=== PATIENT | female | born 1985 | race Caucasian/White ===

== ENCOUNTER 2023-12-16 07:08 | Emergency (ER) | payer OTHER, SELFPAY ==
[2023-12-16 07:14] VITALS: BP 91/74; PULSE 84; TEMP 36.6; O2SAT 100
--- NOTE | 2023-12-16 07:35 | CT_ITS ---
The [address] [address] Patient Name: JIGNESH DIEHL MRN: [id number] date: 1985 Sex: F Assigned Patient Location: ED.MAIN Current Patient Location: ER Accession/Order Number: [id number] Exam Date: 12/16/2023 07:45 Report Date: 12/16/2023 08:17 At the request of: VIKRAM LUGO Procedure: CT head/brain wo con EXAMINATION: CT head/brain wo con, 12/16/2023 7:45 AM EDT HISTORY: migraine COMPARISON: None. TECHNIQUE: CT scan of the head was performed without IV contrast. CT dose reduction technique was used, including Automated Exposure Control. FINDINGS: BRAIN: No edema, hemorrhage, mass, acute infarction, or inappropriate atrophy. CSF SPACES: No hydrocephalus, subarachnoid hemorrhage, or mass. Appropriate for age. SKULL: No fracture, mass, or other significant visible lesion. SINUSES: No significant mucosal thickening or fluid on the limited views. ORBITS: No appreciable abnormality on the limited views. OTHER: Negative CT/CT head/brain wo con IMPRESSION: No acute intracranial abnormality Electronically authenticated by: IRVING ADAMS Date: 12/16/2023 08:17
[2023-12-16 07:50] LABS: Basophils Percent Auto 0.2 % (0.2-2.0); Eosinophils Absolute Auto 0.1 10^3/uL (0.0-0.7); Hematocrit 43.1 % (36.0-48.0); Hemoglobin 14.2 g/dL (12.0-16.0); Immature Granulocytes Abs Auto 0.03 10^3/uL (0.00-0.03); Immature Granulocytes Pct Auto 0.3 % (0.0-0.5); Lymphocytes Absolute Auto 2.4 10^3/uL (1.2-3.8); Lymphocytes Percent Auto 27.9 % (20.5-60.0); Mean Corpuscular HGB Conc 32.9 g/dL (29.9-35.2); Mean Corpuscular Hemoglobin 29.4 pg (26.7-34.0); Mean Corpuscular Volume 89.2 fL (81.0-99.0); Mean Platelet Volume 10.2 fL (9.5-13.5); Monocytes Absolute Auto 0.5 10^3/uL (0.3-0.8); Monocytes Percent Auto 5.8 % (1.7-12.0); Neutrophils Absolute Auto 5.6 10^3/uL (1.4-6.5); Neutrophils Percent Auto 64.8 % (43.0-75.0); Platelet Count 229 10^3/uL (150-450); Red Blood Count 4.83 10^6/uL (4.20-5.40); Red Cell Distribution Width 12.7 % (11.0-15.0); White Blood Count 8.6 10^3/uL (4.0-11.0)
--- NOTE | 2023-12-16 07:50 | ED_ITS ---
HPI HPI - General Adult General Chief complaint: Headache Stated complaint: HEADACHE Time Seen by Provider: 12/16/23 07:23 Source: patient Mode of arrival: walk-in Limitations: no limitations History of Present Illness HPI narrative: Patient presents to ED complaining of migraine headache. She has a longstanding history of migraines but she states this 1 is very different because it lasted a lot longer than normal. She said it started last Thursday and has been on and off since. She did go to the chiropractor who told her her neck was tight and she was adjusted and had some relief from that but then the pain came back by the next day. She did take her rescue medications at home without relief. She has been eating and drinking but not as much is normal. Her blood pressure is a li ttle bit low here today. No neurological deficits but she is sensitive to light and sound. She said most of the time her migraines on the right side of her face and sometimes she gets some numbness and tingling with. Today the migraine seems to be more around the back of her head. No trauma. She did request a CAT scan today because she states her symptoms are different than her normal Alert and oriented x 3 in no acute distress Related Data Allergies Allergy/AdvReac Type Severity Reaction Status Date / Time amitriptyline Allergy Mild tremor Verified 12/16/23 07:14 Opioid HPI Opioid Management Most Recent Opioid Data: Last Pain Scale 7 12/16/23 07:51 Last MAR Pain Assessment 12/16/23 07:51 Review of Systems ROS Status of ROS 10 or more systems reviewed and unremark able except as noted in history and below Exam Narrative Exam Narrative: Time Seen: [] Vital Signs: [Per nurse's notes.] General: [Alert] Skin: [Warm, dry, no rash.] Head: [Normocephalic, atraumatic.] Neck: [Supple, trachea midline.] Eye: [Pupils are equal, round and reactive to light, extraocular movements are intact, normal conjunctiva.] Ears, nose, mouth and throat: oral mucosa moist. Cardiovascular: [Regular rate and rhythm, no murmur.] Respiratory: [Lungs are clear to auscultation, respirations are non-labored, breath sounds are equal.] Chest wall: [No tenderness, no deformity.] Gastrointestinal: [Soft, nontender, non distended, normal bowel sounds.] MSK: 5 out of 5 muscle strength x 4 extremities no calf pain or edema Lymphatics: [No lymphadenopathy.] Psychiatric: [Cooperative, appropriate mood & affect.] Neurological: [Alert and oriented to person, place, time, and situation, no focal neurological deficit observed.] Constitutional Vital Signs, click to edit/add: Last Vital Signs Temp 97.9 F 12/16/23 07:14 Pulse 84 12/16/23 07:14 Resp 16 12/16/23 07:14 BP 91/74 12/16/23 07:14 Pulse Ox 100 12/16/23 07:14 Course Vital Signs Vital signs: Vital Signs Temperature 97.9 F 12/16/23 07:14 Pulse Rate 84 12/16/23 07:14 Respiratory Rate 16 12/16/23 07:14 Blood Pressure 91/74 12/16/23 07:14 Pulse Oximetry 100 12/16/23 07:14 Temperature 97.9 F 12/16/23 07:14 Pulse Rate 84 12/16/23 07:14 Respiratory Rate 16 12/16/23 07:14 Blood Pressure 91/74 12/16/23 07:14 Pulse Oximetry 100 12/16/23 07:14 Medical Decision Making MDM Narrative Medical decision making narrative: Patient's labs and imaging are nonacute. She is feeling much better after IV medication and fluids. Patient is comfortable care plan for home. Follow-up with neurology. Discussed possible Botox treatments for her migraines, please discuss this with your neurologist as I think it may help with as I think a lot of this is tension related. Return to ED if worsening symptoms. Differential Diagnosis Differential Diagnosis: Migraine, atypical migraine, intracranial hemorrhage, Electrolyte abnormali Medical Records Medical records reviewed: Yes I reviewed the patient's medical records Lab Data Lab results reviewed: Yes I reviewed the patient's lab results Labs: Lab Results 12/16/23 Range/Units 07:24 WBC 8.6 (4.0-11.0) 10^3/uL RBC 4.83 (4.20-5.40) 10^6/uL Hgb 14.2 (12.0-16.0) g/dL Hct 43.1 (36.0-48.0) % MCV 89.2 (81.0-99.0) fL MCH 29.4 (26.7-34.0) pg MCHC 32.9 (29.9-35.2) g/dL RDW 12.7 (11.0-15.0) % Plt Count 229 (150-450) 10^3/uL MPV 10.2 (9.5-13.5) fL Neut % (Auto) 64.8 (43.0-75.0) % Lymph % (Auto) 27.9 (20.5-60.0) % [place] % (Auto) 5.8 (1.7-12.0) % Eos % (Auto) 1.0 (0.9-7.0) % Baso % (Auto) 0.2 (0.2-2.0) % Neut # (Auto) 5.6 (1.4-6.5) 10^3/uL Lymph # (Auto) 2.4 (1.2-3.8) 10^3/uL [place] # (Auto) 0.5 (0.3-0.8) 10^3/uL Eos # (Auto) 0.1 (0.0-0.7) 10^3/uL Baso # (Auto) 0.0 (0.0-0.1) 10^3/uL Abs Immat Gran (auto) 0.03 (0.00-0.03) 10^3/uL Imm/Tot Granulo (auto) 0.3 (0.0-0.5) % Sodium 145 (136-145) mmol/L Potassium 3.8 (3.5-5.1) mmol/L Chloride 108 H (98-107) mmol/L Carbon Dioxide 28.7 (21.0-32.0) mmol/L Anion Gap 12.1 BUN 11.0 (7.0-18.0) mg/dL Creatinine 0.98 (0.55-1.02) mg/dL Est GFR ( Amer) >60 (>=60) Est GFR (Non-Af Amer) >60 (>=60) BUN/Creatinine Ratio 11.2 Glucose 91 (74-106) mg/dL Calcium 9.4 (8.5-10.1) mg/dL Magnesium 2.5 H (1.8-2.4) mg/dL Total Bilirubin 0.8 (0.2-1.0) mg/dL AST 16 (15-37) U/L ALT 21 (14-59) U/L Alkaline Phosphatase 34 L (46-116) U/L Total Protein 7.2 (6.4-8.2) g/dL Albumin 3.6 (3.4-5.0) g/dL Globulin 3.6 g/dL Albumin/Globulin Ratio 1.0 Urine Color Lt. yellow (YELLOW) Urine Clarity Clear (CLEAR) Urine pH 6.0 (5.0-9.0) Ur Specific [place] 1.020 (1.005-1.025) Urine Protein Negative (NEG/TRACE) mg/dL Urine Glucose (UA) Negative (NEGATIVE) mg/dL Urine Ketones Negative (NEGATIVE) mg/dL Urine Occult Blood Trace-i (NEGATIVE) Urine Nitrite Negative (NEGATIVE) Urine Bilirubin Negative (NEGATIVE) Urine Urobilinogen 0.2 (0.2-1.0) EU/dL Ur Leukocyte Esterase Negative (NEGATIVE) Urine RBC 2-5 A (0-2) #/HPF Urine WBC 0-2 A (NONE SEEN) #/HPF Ur Squamous Epith Cells Few A (NONE/RARE) #/LPF Urine Crystals None seen (None Seen) #/HPF Urine Bacteria None seen (NONE SEEN) #/HPF Urine Casts None seen (NONE SEEN) #/LPF Urine Mucus None seen (NONE SEEN) Ur Culture Indicated? No Urine HCG, Qual Negative (NEGATIVE) Imaging Data CT scan - head: Radiologist's impression: ITS Impressions Head CT 12/16/23 07:35 IMPRESSION: No acute intracranial abnormality Electronically authenticated by: IRVING ADAMS Date: 12/16/2023 08:17 Discharge Plan Discharge Stand Alone Forms: Portal Instructions Chief Complaint: Headache Clinical Impression: Headache Patient Disposition: Home, Self-Care Time of Disposition Decision: 09:09 Condition: Good Mode of Transportation: Private Vehicle Print Language: Danish Instructions: Acute Headache (ED) Referrals: COLLINS ROACH [Primary Care Provider] - 1 week
[2023-12-16 07:51] LABS: Bilirubin Urine NEGATIVE (NEGATIVE); Blood Urine TRACE-I (NEGATIVE); Clarity Urine CLEAR (CLEAR); Color Urine LT. YELLOW (YELLOW); Glucose Urine UA NEGATIVE (NEGATIVE); Ketones Urine NEGATIVE (NEGATIVE); Leukocyte Esterase Urine NEGATIVE (NEGATIVE); Nitrite Urine NEGATIVE (NEGATIVE); Protein Urine NEGATIVE (NEG/TRACE); Urine Microscopic Indicated YES; Urobilinogen Urine 0.2 EU/dL (0.2-1.0)
[2023-12-16] MEDS: KETOROLAC TROMETHAMINE 30 MG/ML VIAL IVP (07:51)
[2023-12-16] MEDS: METOCLOPRAMIDE HCL 10 MG/2 ML VIAL IVP (07:51)
[2023-12-16] MEDS: 0.9 % SODIUM CHLORIDE 1,000 ML 1000 ML IV (07:51)
[2023-12-16] MEDS: DIPHENHYDRAMINE HCL 50 MG/ML VIAL 25 MG IV (07:52)
[2023-12-16 08:05] LABS: Alanine Aminotransferase 21 U/L (14-59); Albumin Level 3.6 g/dL (3.4-5.0); Alkaline Phosphatase 34 U/L (46-116); Anion Gap 12.1; Aspartate Amino Transferase 16 U/L (15-37); BUN Creatinine Ratio 11.2; Bacteria Urine NONE SEEN #/HPF (NONE SEEN); Bilirubin Total 0.8 mg/dL (0.2-1.0); Calcium 9.4 mg/dL (8.5-10.1); Carbon Dioxide 28.7 mmol/L (21.0-32.0); Cast Seen? NONE SEEN #/LPF (NONE SEEN); Chloride 108 mmol/L (98-107); Crystals Seen? None Seen #/HPF (None Seen); Estimated GFR (African America >60 (>=60); Estimated GFR (Non-African Ame >60 (>=60); Globulin 3.6 g/dL; Glucose 91 mg/dL (74-106); Magnesium 2.5 mg/dL (1.8-2.4); Mucus Urine NONE SEEN (NONE SEEN); Potassium 3.8 mmol/L (3.5-5.1); Sodium 145 mmol/L (136-145); Squamous Epithelial Cell Urine FEW #/LPF (NONE/RARE); Total Protein 7.2 g/dL (6.4-8.2); Urine Culture Indicated NO; WBC Urine 0-2 #/HPF (NONE SEEN)
[2023-12-16 09:07] LABS: HCG Qualitative Urine* NEGATIVE (NEGATIVE)
[2023-12-16 09:27] VITALS: BP 102/70; PULSE 88; O2SAT 100
== END 2023-12-16 09:29 | disposition home or self-care (01) ==
PROVIDERS: Emergency Provider Emergency Medicine; PCP Nurse Practitioner Family
DX: R51.9 Headache, unspecified (principal)
CPT/HCPCS: 36415; 70450; 80053; 81001; 83735; 84703; 85025; 96374; 96375; 99284; J1200; J1885; J2765